=== PATIENT | female | born 1980 | race Caucasian/White ===

== ENCOUNTER 2016-06-23 18:52 | Emergency (ER) | payer OTHER ==
--- NOTE | 2016-06-23 19:01 | UC ---
Respiratory Complaint HPI - HPI Summary HPI Summary: SOB, ache all over, viral Started new immune medicine for lupus did have a flu shot - History of Current Complaint Stated Complaint: DENTAL Time Seen by Provider: 06/23/16 18:54 Hx Obtained From: Patient Hx Last Menstrual Period: 04/02/16 - Allergies/Home Medications Allergies/Adverse Reactions: Allergies Allergy/AdvReac Type Severity Reaction Status Date / Time Metronidazole [From Flagyl] Allergy Rash Verified 04/19/16 18:10 Tramadol Allergy Rash Verified 04/19/16 18:10 Clindamycin AdvReac Intermediate Diarrhea Verified 04/19/16 18:10 Cephalexin AdvReac dizzy Verified 04/19/16 18:10 PMH/Surg Hx/FS Hx/Imm Hx Psychological History Of: Reports: Anxiety, Depression - Surgical History Surgical History: Yes Surgery Procedure, Year, and Place: 2 C-Sections. Tubal Ligation. 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
[2016-06-23 19:18] VITALS: BP 132/64
--- NOTE | 2016-06-23 19:23 | UC ---
Dental HPI - HPI Summary HPI Summary: lower dental pain x several days. Pt with multiple prior visits to for same. States she missed a prior dental appointment because she got gastroenteritis. States she has a definite dental appointment of 06/28/16. States she will not miss it. Is going to have all her lower teeth extracted. - History of Current Complaint Chief Complaint: UCDentalProblem Stated Complaint: DENTAL Time Seen by Provider: 06/23/16 18:54 Hx Obtained From: Patient Hx Last Menstrual Period: 06/05/16 Onset/Duration: Gradual Onset, Lasting Weeks, Still Present Severity: Moderate Pain Intensity: 9 Pain Scale Used: 0-10 Numeric Aggravating: Chewing Alleviating: Nothing Related History: Discharge, Swelling - Allergies/Home Medications Allergies/Adverse Reactions: Allergies Allergy/AdvReac Type Severity Reaction Status Date / Time Metronidazole [From Flagyl] Allergy Rash Verified 06/23/16 19:18 Tramadol Allergy Rash Verified 06/23/16 19:18 Clindamycin AdvReac Intermediate Diarrhea Verified 06/23/16 19:18 Cephalexin AdvReac dizzy Verified 06/23/16 19:18 PMH/Surg Hx/FS Hx/Imm Hx Previously Healthy: Yes Psychological History Of: Reports: Anxiety, Depression - Surgical History Surgical History: Yes Surgery Procedure, Year, and Place: 2 C-Sections. Tubal Ligation. 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 - Family History Known Family History: Positive: Cardiac Disease, Hypertension, Diabetes, Other - LUPUS - Social History Lives: With Family Alcohol Use: None Substance Use Type: None Smoking Status (MU): Light Every Day Tobacco Smoker Type: Cigarettes Amount Used/How Often: 1/2 ppd Length of Time of Smoking/Using Tobacco: 10 years Have You Smoked in the Last Year: Yes Household Exposure Type: Cigarettes Review of Systems Constitutional: Negative Skin: Negative Eyes: Negative ENT: Dental Pain Respiratory: Negative Cardiovascular: Negative Gastrointestinal: Negative Genitourinary: Negative Motor: Negative Neurovascular: Negative Musculoskeletal: Negative Neurological: Negative Psychological: Negative All Other Systems Reviewed And Are Negative: Yes Physical Exam Triage Information Reviewed: Yes Appearance: Well-Appearing, Well-Nourished, Pain Distress Vital Signs: Initial Vital Signs Temp 99.6 F 06/23/16 19:14 Pulse 109 06/23/16 19:14 Resp 18 06/23/16 19:14 BP 132/64 06/23/16 19:14 Pulse Ox 97 06/23/16 19:14 tachycardia noted Vital Signs Reviewed: Yes Eyes: Positive: Conjunctiva Clear ENT: Positive: Pharynx normal, TMs normal Dental: Positive: Percussion Tenderness @ - left lower premolar, Gross Decay/ Caries @, Abscess @ - left lower premolar Neck: Positive: Supple, Nontender, No Lymphadenopathy Respiratory: Positive: No respiratory distress Cardiovascular: Positive: RRR, Pulses Normal, Brisk Capillary Refill Musculoskeletal: Positive: Strength Intact, ROM Intact Neurological: Positive: Alert, Muscle Tone Normal Psychological Exam: Normal Skin Exam: Normal Dental Complaint Course/Dx - Differential Dx/Diagnosis Differential Diagnosis/Dx: Dental Abscess, Dental Caries, Gingivitis Provider Diagnoses: dental caries. dental abscess Discharge - Discharge Plan Condition: Stable Disposition: HOME Prescriptions: Amoxicillin CAP* 500 mg PO TID #30 cap HYDROcodone/ACETAMIN 5-325 MG* [Ingomar 5-325 TAB*] 1 tab PO Q12H PRN #6 tab MDD 2 PRN Reason: Pain Ibuprofen TAB* [Motrin TAB* 800 MG] 800 mg PO Q6H #30 tab Patient Education Materials: Dental Abscess (ED), Dental Caries (ED) Referrals: Karuna Zimmerman PA [Primary Care Provider] -
[2016-06-23] MEDS ORDERED: Amoxicillin PO (*) 500 MG CAP PO ONE (19:35)
[2016-06-23] MEDS ORDERED: Ibuprofen TAB* 400 MG PO ONE (19:38)
[2016-06-23] MEDS ORDERED: HYDROcodone/ACETAMIN 5-325 MG* 1 TAB PO ONE (19:39)
== END 2016-06-23 19:54 | disposition home or self-care (01) ==
LOC: UCCORT 18:52
DX: K02.9 Dental caries, unspecified (principal); K04.7 Periapical abscess without sinus; Z88.1 Allergy status to other antibiotic agents; Z88.5 Allergy status to narcotic agent; F17.210 Nicotine dependence, cigarettes, uncomplicated
CPT/HCPCS: 99213; A9270-GY; G0463